=== PATIENT | female | born 2000 | race American Indian/Alaskan Native ===

== ENCOUNTER 2020-09-02 14:45 | Emergency (ER) | payer OTHER ==
[~2020-09-02] VITALS: Ht 160 cm; Wt 63.5 kg
[2020-09-02] MEDS ORDERED: FLOVENT HFA 4444 MCG INH (14:58)
[2020-09-02] MEDS ORDERED: IBU600 MG PO (16:49)
[2020-09-02] MEDS ORDERED: ROBAXIN 750 MG750 MG PO (16:49)
[2020-09-02 17:02] VITALS: BP 120/72
== END 2020-09-02 17:03 | disposition home or self-care (01) ==
LOC: M.ERS 14:45
DX: S16.1XXA Strain of muscle, fascia and tendon at neck level, initial encounter (principal); S29.012A Strain of muscle and tendon of back wall of thorax, initial encounter; S39.012A Strain of muscle, fascia and tendon of lower back, initial encounter; J45.909 Unspecified asthma, uncomplicated; V49.59XA Passenger injured in collision with other motor vehicles in traffic accident, initial encounter; Y93.89 Activity, other specified; Y92.89 Other specified places as the place of occurrence of the external cause; Y99.8 Other external cause status

== ENCOUNTER 2020-09-13 13:00 | Emergency (ER) | payer OTHER ==
[~2020-09-13] VITALS: Ht 157.5 cm; Wt 70.8 kg
[~2020-09-13 13:00] MED LIST: FLOVENT HFA 4444 MCG INH; IBU600 MG PO; ROBAXIN 750 MG750 MG PO
[2020-09-13 13:17] VITALS: BP 123/69
[2020-09-13] MEDS ORDERED: APAP W/CODEINE1 TA2 PO (13:24)
== END 2020-09-13 13:35 | disposition home or self-care (01) ==
LOC: M.ERS 13:00
DX: M54.5 Low back pain (principal); J45.909 Unspecified asthma, uncomplicated